=== PATIENT | female | born 1975 | race Two or more races ===

== ENCOUNTER 2016-12-22 12:13 | Emergency (ER) | payer OTHER, MEDICAID ==
[~2016-12-22] VITALS: Ht 154.9 cm; Wt 86.2 kg
[2016-12-22 12:25] VITALS: BP 109/60
== END 2016-12-22 13:49 | disposition home or self-care (01) ==
LOC: ER 12:13
DX: J20.9 Acute bronchitis, unspecified (principal)

== ENCOUNTER 2017-01-15 00:19 | Emergency (ER) | payer OTHER, MEDICAID ==
[~2017-01-15] VITALS: Ht 154.9 cm; Wt 89.8 kg
[2017-01-15 01:10] LABS: Basophils # (auto) 0 uL; Basophils % (auto) 0.5 % (0.0-2.0); DEFINITIVE VIEW TRANSMISSION; Eosinophils # (auto) 0.3 uL; Eosinophils % (auto) 4.2 % (0.0-7.0); Hematocrit 38.8 % (36.0-46.0); Hemoglobin 12.8 g/dL (12.2-16.2); Lymphocytes # (auto) 2.8 uL; Lymphocytes % (auto) 36.6 % (10.0-50.0); Mean Corpuscular Hemoglobin 26.6 pg (28.0-32.0); Mean Corpuscular Hgb Conc. 32.9 g/dL (32.0-36.0); Mean Corpuscular Volume 81.1 fL (80.0-100.0); Mean Platelet Volume 8.1 fL (7.4-10.4); Monocytes # (auto) 0.7 uL; Monocytes % (auto) 9.4 % (0.0-12.0); Neutrophils # (auto) 3.7 uL; Neutrophils % (auto) 49.3 % (37.0-80.0); Platelet Count (auto) 367 10^3/uL (140-450); Red Cell Distribution Width 13.9 % (11.6-16.0); White Blood Cell 7.5 10^3/uL (4.4-10.8)
[2017-01-15 01:29] LABS: Albumin 3.8 g/dL (3.4-5.0); Aspartate Aminotransferase 11 U/L (15-37); BUN/Creatinine Ratio 16.9; Blood Urea Nitrogen 13 mg/dL (7-18); Calcium 8.6 mg/dL (8.5-10.1); Chloride 103 mmol/L (98-107); GFR African American 106 mL/min; GFR Non-African American 87 mL/min; Glucose 84 mg/dL (74-106); Magnesium 2.3 mg/dL (1.6-2.6); Potassium 3.3 mmol/L (3.5-5.1); Sodium 137 mmol/L (136-145)
[2017-01-15 01:39] LABS: Alkaline Phosphatase 88 U/L (45-117); Anion Gap 9 (5-15); Bilirubin, Total 0.2 mg/dL (0.2-1.0); Carbon Dioxide 25 mmol/L (21-32); Total Protein 8.1 g/dL (6.4-8.2)
[2017-01-15 02:45] VITALS: BP 120/72
== END 2017-01-15 03:45 | disposition left against medical advice (07) ==
LOC: ER 00:32
DX: R06.02 Shortness of breath (principal); M79.602 Pain in left arm; R20.0 Anesthesia of skin; Z53.21 Procedure and treatment not carried out due to patient leaving prior to being seen by health care provider
CPT/HCPCS: 36415; 71020; 80053; 83735; 84443; 84484; 85025; 85379; 93005